=== PATIENT | male | born 1955 | race African-American/Black ===

== ENCOUNTER 2023-01-18 13:57 | Emergency (ER) | payer MEDICARE ==
[~2023-01-18] VITALS: Ht 188 cm; Wt 98.0 kg
[2023-01-18 15:32] LABS: CHLORIDE 108 mEq/L (98-107)
[2023-01-18 15:38] LABS: EOSINOPHILS % 2.9 % (0.0-5.0); HEMATOCRIT. 29.4 % (42.0-52.0); HEMOGLOBIN. 9.5 g/dL (14.0-18.0); LYMPHOCYTES % 15.8 % (20.0-50.0); MEAN CORPUSCULAR HEMOGLOBIN 26.4 pg (28.0-32.0); MEAN CORPUSCULAR VOLUME 81.6 fL (80.0-94.0); MEAN PLATELET VOLUME 8.1 fl (7.4-10.4); MONOCYTES % 9.3 % (2.0-8.0); PLATELET 213 x1000/uL (130-400); RED BLOOD CELL COUNT 3.61 mill/uL (4.7-6.1)
[2023-01-18 18:00] VITALS: BP 157/78
[2023-01-18 18:41] LABS: PLATELET ESTIMATE NORMAL
== END 2023-01-18 18:20 | disposition home or self-care (01) ==
LOC: ER 13:57
DX: R55 Syncope and collapse (principal); E11.9 Type 2 diabetes mellitus without complications; I10 Essential (primary) hypertension
CPT/HCPCS: 36415; 71045; 80053; 84484; 85025; 93005; 99285